=== PATIENT | female | born 1985 | race Native Hawaiian/Other Pacific Islander ===

== ENCOUNTER 2019-12-05 07:37 | Inpatient (IN) | payer SELFPAY ==
[2019-12-05] MEDS ORDERED: LACTATED RINGERS 1,000 ML ONE (11:36)
--- NOTE | 2019-12-05 11:52 | Ultrasound Report ---
LIMITED OBSTETRICAL ULTRASOUND. HISTORY: Evaluate placental location. FINDINGS: Limited obstetrical ultrasound was performed. The placenta is anteriorly located and free o f the os. Amniotic fluid index is normal at 12.1 cm. heart tones are 149 bpm. IMPRESSION: Anterior placenta. Signer Name: Daniel Lau MD Signed: 12/05/2019 11:47 AM Workstation Name: [id number]
[2019-12-05] MEDS ORDERED: BICITRA ORAL LIQD 30ML ONE (12:35)
[2019-12-05] MEDS ORDERED: FAMOTIDINE 20 MG/2 ML INJ IV ONE ×2 (12:35→13:38)
[2019-12-05] MEDS ORDERED: METOCLOPRAMIDE 10 MG/2 ML INJ ONE (12:35)
[2019-12-05] MEDS ORDERED: ceFAZolin/Water 2 GM/20 ML 2 GM/20 ML SYRINGE IV ONE (12:36)
[2019-12-05] MEDS ORDERED: BICITRA ORAL LIQD 30ML PO ONE ×2 (12:36→13:38)
[2019-12-05] MEDS ORDERED: FAMOTIDINE 20 MG/2 ML INJ IV NR (12:38)
[2019-12-05] MEDS ORDERED: METOCLOPRAMIDE 10 MG/2 ML INJ IV NR (12:39)
[2019-12-05] MEDS ORDERED: ceFAZolin/STERILE WATER 2 GM/20 ML SYRINGE IV NR (12:40)
[2019-12-05] MEDS ORDERED: OXYTOCIN 20 UNIT/1000ML DRIP 20,000 MILLIUNITS/1,000 ML BAG IV ONE (12:45)
[2019-12-05 12:48] LABS: Hematocrit 34.2 % (30.3-42.9); Hemoglobin 11.4 gm/dl (10.1-14.3); Mean Corpuscular HGB Conc 33 % (30-34); Mean Corpuscular Volume 89 fl (79-97); Red Blood Count 3.82 M/mm3 (3.65-5.03)
[2019-12-05] MEDS ORDERED: D5W/LACTATED RINGERS 1,000 ML IV ONE (12:53)
[2019-12-05] MEDS ORDERED: D5W/LACTATED RINGERS 1,000 ML IV SCH (13:00)
[2019-12-05] MEDS ORDERED: METOCLOPRAMIDE 10 MG/2 ML INJ IV ONE (13:38)
[2019-12-05] MEDS ORDERED: LACTATED RINGERS 1,000 ML IV SCH (14:00)
[2019-12-05] MEDS ORDERED: OXYTOCIN 20 UNIT/1000ML DRIP 20 UNITS/1,000 ML BAG IV SCH ×2 (14:00→17:00)
[2019-12-05] MEDS ORDERED: ceFAZolin/Water 2 GM/20 ML 2 GM/20 ML SYRINGE IV NR (14:00)
--- NOTE | 2019-12-05 14:12 | History and Physical Report ---
History of Present Illness Date of examination: 12/05/19 Date of admission: 12/05/19 12:45 Chief complaint: active vaginal bleeding at term History of present illness: 34yo at 38+6/7 weeks presents to OB triage with active vaginal bleeding, unknown etiology remote from delivery(not in labor) Multiparity, desires permanent sterilization [facility] complicated by GDM and Gestational HTN Past History Past Medical History: hypertension, other (gestational diabetes, gestational hypertension) Past Surgical History: no surgical history Social history: no significant social history - Obstetrical History Expected Date of Delivery: 12/13/19 Actual Gestation: 38 Week(s) 6 Day(s) : 6 Para: 4 Medications and Allergies Allergies Allergy/AdvReac Type Severity Reaction Status Date / Time No Known Allergies Allergy Verified 07/01/15 05:30 Home Medications Medication Instructions Recorded Confirmed Last Taken Type Plus Tablet 325 unit PO DAILY 12/05/19 12/05/19 12/04/19 09:00 History Active Meds: Active Medications Cefazolin Sodium (Ancef/Sterile Water 2 Gm/20 Ml) 2 gm IV PREOP NR Stop: 12/05/19 23:00 Famotidine (Pepcid) 20 mg IV PREOP NR Stop: 12/05/19 23:00 Dextrose/Lactated Ringer's (D5lr) 1,000 mls @ 125 mls/hr IV DIRECT SLICK Oxytocin/Sodium Chloride (Pitocin/Ns 20 Unit/1000ml Drip) 20 units in 1,000 mls @ 0 mls/hr IV TITR SLICK Lactated Ringer's (Lactated Ringers) 1,000 mls @ 2,250 mls/hr IV PREOP SLICK Stop: 12/06/19 14:27 Metoclopramide HCl (Reglan) 10 mg IV PREOP NR Stop: 12/05/19 23:00 Review of Systems All systems: negative (vaginal bleeding) - Vital Signs Vital signs: Vital Signs Pulse BP 122 H 139/72 12/05/19 08:05 12/05/19 08:05 Temp Pulse Resp BP Pulse Ox 98.4 F 106 H 132/71 97 12/05/19 13:12 12/05/19 14:04 12/05/19 14:00 12/05/19 14:04 - Physical Exam Breasts: Positive: deferred Cardiovascular: Regular rate Lungs: Positive: Clear to auscultation Abdomen: Positive: normal appearance, normal bowel sounds Extremities: Positive: normal Deep Tendon Reflex Grade: Normal +2 - Obstetrical FHR: category 1 Cervical Dilatation: 0 Cervical Effacement Percentage: 0 station: -4 Results Result Diagrams: 12/05/19 11:50 Abnormal lab results 12/05/19 Range/Units 13:02 POC Glucose 60 L (70-105) All other labs normal. 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
--- NOTE | 2019-12-05 14:14 | Anesthesia Consultation ---
Anesthesia Consult and Med Hx Date of service: 12/05/19 - Airway Anesthetic Teeth Evaluation: Good ROM Head & Neck: Adequate Mental/Hyoid Distance: Adequate Mallampati Class: Class II Intubation Access Assessment: Probably Good - Pulmonary Exam CTA: Yes - Cardiac Exam Cardiac Exam: RRR - Pre-Operative Health Status ASA Pre-Surgery Classification: ASA3 Proposed Anesthetic Plan: Spinal - Pulmonary Hx Asthma: No COPD: No Hx Pneumonia: No - Cardiovascular System Hx Hypertension: Yes (this ) - Central Nervous System Hx Seizures: No Hx Psychiatric Problems: No - Endocrine Hx Renal Disease: No Hx End Stage Renal Disease: No Hx Non-Insulin Dependent Diabetes: Yes Hx Hypothyroidism: No Hx Hyperthyroidism: No - Hematic Hx Anemia: No Hx Sickle Cell Disease: No - Other Systems Hx Alcohol Use: No Hx Obesity: Yes
--- NOTE | 2019-12-05 14:15 | Anesthesia Day of Surgery ---
Anesthesia Day of Surgery - Day of Surgery Patient Examined: Yes Patient H&P Reviewed: Yes Patient is NPO: Yes
[2019-12-05 14:19] LABS: Platelet Count 191 K/mm3 (140-440)
[2019-12-05] MEDS ORDERED: PHENYLEPHRINE 10 MG/1 ML INJ SDV ONE (15:13)
[2019-12-05] MEDS ORDERED: DEXMEDETOMIDINE 200 MCG/2 ML VIAL IV ONE (15:13)
[2019-12-05] MEDS ORDERED: SODIUM CHLORIDE 0.9% 100 ML ONE (15:13)
[2019-12-05] MEDS ORDERED: WITCH HAZEL/ GLYCERIN PAD TP PRN (16:23)
[2019-12-05] MEDS ORDERED: LANOLIN/ZINC/DIMETHICONE (LANSINOH) 7 GM TP PRN (16:23)
[2019-12-05] MEDS ORDERED: NALOXONE 0.4 MG/1 ML INJ IV PRN (16:23)
[2019-12-05] MEDS ORDERED: MORPHINE 4 MG/1 ML INJ IV PRN (16:32)
[2019-12-05] MEDS ORDERED: MORPHINE 2 MG/1 ML INJ IV PRN (16:32)
[2019-12-05] MEDS ORDERED: ACETAMINOPHEN 650 MG RECT SUPP PR PRN (16:32)
--- NOTE | 2019-12-05 16:35 | Procedure Note ---
OB Delivery Note - Delivery Date of Delivery: 12/05/19 Surgeon: MORGAN HORVATH - Section Preop diagnosis: other (vaginal bleeding at term,remote from delivery,multiparity) Postop diagnosis: same section procedure: primary low transverse, bilateral tubal ligation Disposition: PACU Complications: none Narrative: Preoperative diagnosis: IUP at term, undiagnosed vaginal bleeding remote from delivery; Multiparty desires permanent surgical sterilization Postoperative diagnosis: same,delivered Procedure: primary low transverse section via pfannenstiel incision, modified bebeto bilateral tubal ligation Surgeon : Dr Morgan Horvath Assist: scrub Anesthesia: spinal Complications: none Drains: cruz to gravity EBL 700ml IV fluids: 1000ml Urine output: 700ml, clear Findings:normal uterus, tubes and ovaries bilaterally. Viable female,weight 3541gms, 8,9. Procedure: informed consent taken in 2006 with family present. All questions and concerns addressed. R/B/C reviewed. She was taken to the OR where excellent spinal anesthesia was given. She was placed in the dorsal supine position with a leftward tilt. She was prepped and draped in a sterile fashion. A time out was verified. An Madhavi clamp was used to assure adequate analgesia. A Pfannenstiel skin incision was made, taken down through the underlying fascia sharply and extended laterally with curved Davis scissors. The superior and inferior aspect of the fascial incision was grasped with Carla clamps and the rectus muscles dissected off sharply. The abdomen was entered sharply in the midline and extended laterally and inferiorly sharply with good visualization of the underlying structures. The vesicouterine peritoneum was grasped with [place]i forceps and incised sharply with Metzenbaum scissors and extended laterally sharply. The uterine incision was made sharply with a scalpel, taken down to the amnion and extended inferiorly and superiorly bluntly. The bladder blade removed. Baby delivered atraumatically in cephalic presentation, no nuchal cord. Spontaneous cry at delivery.The cord was clamped and cut and baby handed to waiting NICU staff. An intact placenta with three vessel cord delivered manually. The uterus cleared of all clots and debris. The uterus was exteriorized and the uterine incision closed with 3 layers of 0-Vicryl. The abdomen was irrigated with warm normal saline and the uterus placed back in the abdomen. A second look at the uterine incision assured excellent hemostasis. At this time the tubes were suture ligated in the usual fashion. The peritoneum closed with 3-0 vicryl. The rectus muscles approximated with 3-0 vicryl with good hemostasis. The fascia closed with 0-Vicryl in the usual fashion, and the underlying structures closed with interrupted suture of O-Vicryl. The skin closed with monocryl and a pressure dressing applied. Mom and baby stable to . Patient hemodynamically stable in PACU. EBL 700ml Martha ROSARIO
--- NOTE | 2019-12-05 16:36 | Post Anesthesia Evaluation ---
- Post Anesthesia Evaluation Patient Participated: Yes Airway Patent: Yes Stable Respiratory Function: Yes Nausea/Vomiting: No Temp > 96.8F: Yes Pain Manageable: Yes Adequeate Hydration: Yes Anesthesia Complications: No Block Receding Appropriately: Yes
[2019-12-05] MEDS ORDERED: DEXTROSE/DEXTRIN/MALTOSE 24 GM CARB PER 31 GM TUBE PO ONE (18:10)
[2019-12-05] MEDS ORDERED: ePHEDrine SULFATE 50 MG/1 ML INJ IV PRN (19:00)
[2019-12-05] MEDS ORDERED: ePHEDrine SULFATE 50 MG/1 ML INJ ONE (19:06)
[2019-12-05] MEDS ORDERED: HETASTARCH 6% 500 ML IV ONE ×2 (19:08→19:25)
[2019-12-05 19:28] LABS: Basophils # (Auto) 0.1 K/mm3 (0.0-0.1); Basophils % (Auto) 0.4 % (0.0-1.8); Eosinophils # (Auto) 0.2 K/mm3 (0.0-0.4); Eosinophils % (Auto) 1.3 % (0.0-4.3); Hematocrit 33.1 % (30.3-42.9); Lymphocytes # (Auto) 2.7 K/mm3 (1.2-5.4); Lymphocytes % (Auto) 16.3 % (13.4-35.0); Mean Corpuscular HGB Conc 33 % (30-34); Mean Corpuscular Volume 90 fl (79-97); Monocytes # (Auto) 1.3 K/mm3 (0.0-0.8); Monocytes % (Auto) 7.6 % (0.0-7.3); Platelet Count 290 K/mm3 (140-440); Red Blood Count 3.69 M/mm3 (3.65-5.03); Red Cell Distribution Width 15.1 % (13.2-15.2)
[2019-12-06 06:19] LABS: Hematocrit 29.8 % (30.3-42.9)
[2019-12-06] MEDS: HYDROcodone/ACETAMINOPHEN 5-325 MG TAB PO PRN ×2 (08:28→18:23)
[2019-12-06] MEDS: FERROUS SULFATE 325 MG TAB PO SCH (09:51)
--- NOTE | 2019-12-06 10:33 | Progress Note ---
Assessment and Plan - Patient Problems (1) S/P primary low transverse Current Visit: Yes Status: Acute Plan to address problem: Continue routine PP orders Keep drsg clean and dry, remove drsg on POD#2 Anticipate d/c home in 24-48 hrs (2) Anemia Current Visit: Yes Status: Acute Qualifiers: Anemia type: other cause Other causes of anemia: acute posthemorrhagic Qualified Code(s): D62 - Acute posthemorrhagic anemia Plan to address problem: Asymptomatic Continue daily oral iron supplementation as directed Increase iron rich foods into diet Subjective - Subjective Date of service: 12/06/19 Principal diagnosis: S/P primary C/S; POD#1 Interval history: See admission H & P and OB operative note Patient reports: appetite normal, voiding normally, pain well controlled (with medications), flatus, ambulating normally [place]: doing well, bottle feeding (and ) Objective - Vital Signs Latest vital signs: Vital Signs Temp Pulse Resp BP BP Pulse Ox 12/06/19 09:10 98.4 F 106 H 18 139/82 99 12/06/19 08:28 18 12/06/19 03:29 98.4 F 80 20 127/69 99 12/06/19 02:53 18 12/06/19 00:00 98.6 F 79 18 130/73 99 12/05/19 23:15 20 12/05/19 23:03 98 H 124/69 12/05/19 22:55 82 113/65 12/05/19 22:25 77 111/63 12/05/19 21:55 70 110/61 12/05/19 21:20 78 116/60 12/05/19 21:09 81 110/63 12/05/19 20:59 77 101/55 12/05/19 20:49 74 99/55 12/05/19 20:39 74 100/55 12/05/19 20:29 76 96/51 12/05/19 20:20 76 99/53 12/05/19 20:09 78 101/51 12/05/19 19:59 114/59 12/05/19 19:54 75 18 111/56 12/05/19 19:49 75 111/56 12/05/19 19:39 75 111/56 12/05/19 19:30 80 113/54 06/18/20 19:17 66 135/84 0618/20 19:15 70 139/85 06/18/20 19:10 86 166/100 0618/20 19:09 69 163/100 0618/20 19:07 64 149/73 0618/20 19:05 75 78/43 0618/20 19:04 77 79/42 06/18/20 19:03 87 79/40 0618/20 19:02 81 76/40 0618/20 18:59 86 73/41 0618/20 18:58 71 71/34 0618/20 18:56 71 78/40 0618/20 18:53 72 78/42 0618/20 18:39 98.2 F 16 20 17:30 66 15 135/85 18/20 17:15 67 16 133/81 18/20 17:00 63 17 165/84 18/20 16:45 82 18 98/47 18/20 16:40 88 15 90/46 18/20 16:35 90 16 93/47 18/20 16:30 98.6 F 81 16 100/46 97 18/20 14:19 99 H 97 18/20 14:15 101 H 129/74 18/20 14:14 104 H 97 18/20 14:09 103 H 97 18/20 14:04 106 H 97 20 14:00 102 H 132/71 18/20 13:59 104 H 97 18/20 13:54 103 H 97 18/20 13:49 99 H 99 18/20 13:45 100 H 126/66 18/20 13:44 102 H 98 18/20 13:39 103 H 96 18/20 13:34 102 H 96 0618/20 13:30 104 H 128/68 18/20 13:29 105 H 97 18/20 13:24 104 H 97 18/20 13:19 101 H 97 18/20 13:17 101 H 131/66 94 18/20 13:14 102 H 97 18/20 13:12 98.4 F 12/05/19 13:09 102 H 99 06/18/20 13:04 98 H 98 18/20 13:01 104 H 132/77 18/20 12:59 101 H 98 18/20 12:54 102 H 99 18/20 12:49 110 H 99 18/20 12:46 109 H 145/87 18/20 12:44 104 H 100 18/20 12:39 102 H 100 18/20 12:34 101 H 99 18/20 12:32 98 H 169/69 18/20 12:29 96 H 99 18/20 12:23 94 H 88 1820 12:16 94 H 124/72 12/04/20 11:56 101 H 92 18/20 11:51 101 H 91 18/20 11:46 105 H 91 18/20 11:41 101 H 91 18/20 11:36 104 H 90 18/20 11:31 108 H 93 18/20 11:26 112 H 95 18/20 11:22 100 H 94 18/20 11:21 98 H 95 18/20 11:16 104 H 93 18/20 11:15 107 H 94 18/20 11:11 101 H 93 18/20 11:09 103 H 94 18/20 11:06 109 H 93 18/20 11:01 105 H 91 18/20 10:56 106 H 92 18/20 10:51 109 H 93 18/20 10:46 103 H 93 18/20 10:44 105 H 94 18/20 10:41 107 H 93 18/20 10:36 104 H 91 18/20 10:35 107 H 94 Intake and Output 18/20 12/05/20 20 23:59 07:59 15:59 Intake Total 320 120 Output Total 1350 900 800 Balance -1030 -780 -800 Intake: IV 320 20 Left Forearm 10 10 Right Hand 10 10 Oral 100 Output: Urine 1350 900 800 Indwelling Catheter 550 200 300 Uretheral (Hyman) 50 700 Void 500 Other: Total, Intake Amount 100 Total, Output Amount 500 200 300 # Voids Indwelling Catheter 1 Void 1 - Exam Breasts: Present: normal Cardiovascular: Present: Regular rate Lungs: Present: Normal air movement Abdomen: Present: soft, tenderness Uterus: Present: firm, fundal height below umbilicus (U-1) Extremities: Present: normal Deep Tendon Reflex Grade: Normal +2 Incision: Present: dressed (no shadow drainage or bleeding noted) - Labs Labs: Abnormal lab results 12/05/19 12/05/19 12/05/19 Range/Units 13:02 18:08 19:14 WBC (4.5-11.0) K/mm3 Hgb (10.1-14.3) gm/dl Hct (30.3-42.9) % [place] % (Auto) (0.0-7.3) % [place] # (0.0-0.8) K/mm3 Seg Neutrophils % (40.0-70.0) % Seg Neutrophils # (1.8-7.7) K/mm3 POC Glucose 60 L 61 L 63 L (70-105) 12/05/19 12/06/19 Range/Units Unknown 05:36 WBC 16.8 H (4.5-11.0) K/mm3 Hgb 10.0 L (10.1-14.3) gm/dl Hct 29.8 L (30.3-42.9) % [place] % (Auto) 7.6 H (0.0-7.3) % [place] # 1.3 H (0.0-0.8) K/mm3 Seg Neutrophils % 74.4 H (40.0-70.0) % Seg Neutrophils # 12.5 H (1.8-7.7) K/mm3 POC Glucose (70-105)
[2019-12-06] MEDS: IBUPROFEN 800 MG TAB PO PRN (12:43)
[2019-12-07] MEDS: HYDROcodone/ACETAMINOPHEN 5-325 MG TAB PO PRN ×2 (01:15→17:39)
[2019-12-07] MEDS: IBUPROFEN 800 MG TAB PO PRN (08:03)
[2019-12-07] MEDS: FERROUS SULFATE 325 MG TAB PO SCH (08:03)
--- NOTE | 2019-12-07 11:39 | Progress Note ---
Assessment and Plan A: /postop day 2 S/P primary LTCS with tubal ligation. Anemia. P: Continue iron supplementation. Encouraged ambulation. Anticipate discharge tomorrow if patient continues to do well and if OK with MD. Subjective - Subjective Date of service: 12/07/19 Principal diagnosis: S/P primary C/S; POD#2 Interval history: Doing well. Passing gas, ambulating well, tolerating a regular diet, voiding without difficulty. Patient reports: appetite normal, voiding normally, pain well controlled, flatus, ambulating normally, no dizzy ambulation, no nauseated [place]: doing well Objective - Vital Signs Latest vital signs: Vital Signs Temp Pulse Resp BP Pulse Ox 12/07/19 08:33 99.1 F 108 H 18 136/79 97 12/07/19 01:15 20 12/07/19 01:09 99.4 F 104 H 18 145/83 98 12/06/19 18:23 18 12/06/19 17:13 98.6 F 20 134/69 12/06/19 12:43 18 12/06/19 12:16 97.8 F 20 114/68 Intake and Output 12/06/19 12/07/19 12/07/19 23:59 07:59 15:59 Intake Total 780 360 Balance 780 360 Intake: IV 20 Left Forearm 10 Right Hand 10 Oral 400 Intake, Free Water 360 360 Other: Total, Intake Amount 200 Voiding Method Toilet Toilet # Voids 1 Void 1 2 - Exam Cardiovascular: Present: Regular rate, Normal S1, Normal S2, No murmurs Lungs: Present: Clear to auscultation Abdomen: Present: normal appearance, soft, normal bowel sounds. Absent: distention, tenderness, guarding, rigidity Uterus: Present: normal, firm, fundal height below umbilicus. Absent: bogginess, tenderness Extremities: Present: normal, edema (mild pedal edema bilaterally). Absent: tenderness Incision: Present: normal, dry, intact
[2019-12-08] MEDS: IBUPROFEN 800 MG TAB PO PRN (01:00)
[2019-12-08] MEDS: HYDROcodone/ACETAMINOPHEN 5-325 MG TAB PO PRN (07:18)
--- NOTE | 2019-12-08 07:29 | Progress Note ---
Assessment and Plan A: /postop day 3 S/P primary LTCS with tubal ligation. History of gestational diabetes and gestational hypertension. Anemia. P: Discharge patient home today. Discussed with patient in detail /postop discharge instructions and warning signs. Advised patient to continue taking her vitamins and iron supplements at home. Advised patient to avoid intercourse, lifting, housework, stair climbing, driving, tub baths (patient may take showers). Care of incision and activity instructions discussed with pt. Advised patient to follow up at [facility] in 1 week for incision check. Patient voiced understanding of all instructions. Subjective - Subjective Date of service: 12/08/19 Principal diagnosis: S/P primary C/S; POD#3 Interval history: Doing well. Passing gas, ambulating well, tolerating a regular diet, voiding without difficulty. Patient desires discharge home today. Patient reports: appetite normal, voiding normally, pain well controlled, flatus, ambulating normally, no dizzy ambulation, no nauseated : doing well Objective - Vital Signs Latest vital signs: Vital Signs Temp Pulse Resp BP BP Pulse Ox 12/08/19 01:00 20 12/08/19 00:00 98.6 F 69 16 114/76 12/07/19 17:27 97.9 F 88 18 126/79 98 12/07/19 08:33 99.1 F 108 H 18 136/79 97 Intake and Output 12/07/19 12/07/19 12/08/19 15:59 23:59 07:59 Intake Total 620 420 200 Balance 620 420 200 Intake: IV 20 20 Left Forearm 10 10 Right Hand 10 10 Oral 500 300 200 Intake, Free Water 100 100 Other: Total, Intake Amount 500 300 200 Voiding Method Toilet # Voids Void 1 1 - Exam Cardiovascular: Present: Regular rate, Normal S1, Normal S2 Lungs: Present: Clear to auscultation Abdomen: Present: normal appearance, soft, normal bowel sounds. Absent: distention, tenderness, guarding, rigidity Uterus: Present: normal, firm, fundal height below umbilicus. Absent: bogginess, tenderness Extremities: Present: normal. Absent: tenderness Incision: Present: normal, dry, intact
--- NOTE | 2019-12-08 07:33 | Discharge Summary ---
Providers - Providers Date of Admission: 12/05/19 12:45 Date of discharge: 12/08/19 Attending physician: MORGAN HORVATH MD Primary care physician: [employer] Hospitalization Reason for admission: IUP at term, other (vaginal bleeding) Delivery: Procedure: primary low transverse Incision: normal, dry, intact Other procedures: none complications: none Discharge diagnosis: IUP at term delivered baby: female Pertinent studies: Labs Hospital course: Normal hospital course Condition at discharge: Good Disposition: DC-01 TO HOME OR SELFCARE - Discharge Diagnoses (1) Term delivered Status: Acute Plan - Discharge Medications Prescriptions: Ibuprofen [Motrin] 600 mg PO Q8H PRN #30 tablet PRN Reason: Pain oxyCODONE /ACETAMINOPHEN [Percocet 5/325] 1 tab PO Q6HR PRN #20 tablet PRN Reason: Pain - Provider Discharge Summary Activity: routine, no sex for 6 weeks, no heavy lifting 4 weeks, no strenuous exercise Diet: routine Instructions: routine Additional instructions: Continue taking your vitamins and iron supplements at home. Call your doctor immediately for: * Fever > 100.5 * Heavy vaginal bleeding ( >1 pad per hour) * Severe persistent headache * Shortness of breath * Reddened, hot, painful area to leg or breast * Drainage or odor from incision. * Keep incision clean and dry at all times and follow doctor's instructions regarding bathing/showering - Follow up plan Follow up: MORGAN HORVATH MD [Staff Physician] - 7 Days
[2019-12-08] MEDS: FERROUS SULFATE 325 MG TAB PO SCH (09:54)
[2019-12-08 12:55] VITALS: BP 128/76
== END 2019-12-08 13:30 | disposition home or self-care (01) | DRG 784 ==
LOC: TRG 07:37 → APU 07:43 → TRG 12:44 → LD 12:45 → OB 23:44
PROVIDERS: ADMIT Obstetrics & Gynecology; ATTEND Obstetrics & Gynecology
PROC: 10D00Z1 Extraction of Products of Conception, Low, Open Approach (ICD-10-PCS; principal; 2019-12-05)
PROC: 0UB70ZZ Excision of Bilateral Fallopian Tubes, Open Approach (ICD-10-PCS; 2019-12-05)
DX: O67.9 Intrapartum hemorrhage, unspecified (principal); D62 Acute posthemorrhagic anemia; O24.429 Gestational diabetes mellitus in childbirth, unspecified control; Z3A.38 38 weeks gestation of pregnancy; Z37.0 Single live birth; E66.9 Obesity, unspecified; O99.214 Obesity complicating childbirth; O13.4 Gestational [pregnancy-induced] hypertension without significant proteinuria, complicating childbirth; O90.81 Anemia of the puerperium; Z30.2 Encounter for sterilization
CPT/HCPCS: 36415; 76815; 82962; 85014; 85018; 85025; 85027; 86592; 86850; 86900; 86901; 88302; 88307; G0378; J0690; J2270; J2370; J2590; J2765; J3490; J7120; J7121